=== PATIENT | female | born 1990 | race Caucasian/White ===

== ENCOUNTER 2016-04-29 22:50 | Emergency (ER) | payer OTHER ==
[~2016-04-29] VITALS: Ht 165.1 cm; Wt 68.2 kg
[2016-04-29 22:52] VITALS: BP 133/89; PULSE 75; RESP 20; O2SAT 98
--- NOTE | 2016-04-29 23:43 | ED.REPORT ---
HPI- Female Date of Service Apr 29, 2016 ED Provider: Philipp Hooper MD Pt is a 26 year old female presenting to the ED complaining of vaginal bleeding onset 8 days ago. Denies pain with intercourse, fever or chills. She states that she missed a day of her cyclic oral contraceptive last week, and then the next day, she took 2 pills. Since then, she has had persistent vaginal bleeding and stomach cramping. Her last menstrual cycle was February 18, 2016. She reports that she usually has 4 menstrual periods per year. Nursing Notes Stated Complaint: CRAMPING,HEAVY BLEEDING Chief Complaint: Female Abdominal Pain Nursing Notes Reviewed: Yes Allergies: Coded Allergies: No Known Allergies (Unverified , 04/29/16) Scheduled Medroxyprogesterone Acetate (Provera) 10 Mg Tablet 10 MG PO DAILY Scheduled PRN Naproxen (Naprosyn) 500 Mg Tablet 500 MG PO BID PRN PRN For Pain General Time Seen by MD: 23:42 Chief Complaint Vaginal bleeding... (Moderate) Hx Obtained From: Patient Arrived By: Walk-in Sudden in Onset?: No Onset Occurred: More than a week ago... (8 days ago) Symptom Duration: Since onset Quality: Cramping, Painful Severity: Current: Moderate Severity: Maximum: Moderate Recent Healthcare: No recent doctor visit, No recent hospitalization Similar Sx Previous: No Risk- Female Ectopic Risk Stratification RF Statements: Risk factors reviewed Past Medical History Past Medical History denies Past Surgical History denies Smoking History Unknown if Ever Smoker Ambulatory Status Independent Review of Systems GI: Reports: Abdominal pain Female: Reports: Pelvic pain, Vaginal bleeding - abnl Complete sys rev & neg: except as marked. Physical Exam Initial Vital Signs Vital Signs (First) Date Time Temp Pulse Resp B/P Pulse Ox O2 Delivery O2 Flow Rate FiO2 04/29/16 22:52 36.8 75 20 133/89 98 Room Air Initial VS: Reviewed General/Constitutional: Well-developed, Well-nourished Head / Eyes: Atraumatic, Normocephalic, PERRL ENT: Conjunctiva normal, No scleral icterus Neck: Supple Respiratory: No respiratory distress Abdomen / GI: Soft, Non-tender, No distention Extremities: No swelling Skin: Warm, Dry, No cyanosis Neurologic: Alert, Oriented, Nonfocal Psychiatric: Mood/affect normal, Behavior normal, Normal thought content Interpretation & Diagnostics Lab Results Interpretation Test 04/29/16 23:06 Hold Urine Received (Received) Re-Eval/Medical Decision Med Decision/Clinical Course 26-year-old on a low-dose estrogen regimen, using it in seasonal fashion to have for periods a year. She missed a dose of her medicine and made up the next day, but probably began to bleed, now has clots and heavier bleeding. This is fairly clearly a failure of estrogen support and a low dose regimen, after a substantial build up of endometrium. Low risk for endometritis in a monogamous female. No fever or other secondary signs and no prior discharge. No prior dyspareunia either. She is begun with full withdrawal and her progesterone course and then restart of her contraceptive with a fresh pack after completion of her endometrial sloughing. Naprosyn for cramps. Follow up with PCP. Re-Evaluation/Progress : Time of Eval: 23:53 Patient Status: Condition improved Re-Evaluation/Progress Note: Discussed plan for discharge. Pt understands and agrees with plan. All pt questions addressed. Counseled Regarding: Diagnosis, Lab results, Need for follow-up, When/why to return to ED Discharge & Departure Impression: Primary Impression: Menometrorrhagia Disposition: Home Discharge Condition All VS Reviewed: Yes Condition: Improved Patient Instructions: Dysfunctional Uterine Bleeding (ED) Additional Instructions: Take the progesterone for 5 days. Stop her current contraceptive packets, and restart with a fresh packet after he stopped having a period. Naprosyn or ibuprofen for cramps. Follow up with your primary care doctor in the next week. Return to the ER with any new or worsening symptoms such as a fever or other signs of infection. Referrals: NOPCP (PCP) Bonnie Attestation Portions of this note were transcribed by Dhara Medina. I, Dr. Hooper personally performed the history, physical exam and medical decision-making; I reviewed and confirmed the accuracy of the information in the transcribed note. Signed by: Bonnie Quevedo, 04/30/2016 and 0010. Philipp Hooper MD Apr 29, 2016 23:43 DHARA MEDINA Apr 29, 2016 23:55
[2016-04-30] MEDS ORDERED: MEDR10TA PO (00:03)
[2016-04-30] MEDS ORDERED: NAPR500T PO (00:03)
[2016-04-30] MEDS ORDERED: MedroxyPROGESTERone 5 mg Tablet PO ONE (00:05)
== END 2016-04-30 00:30 | disposition home or self-care (01) ==
LOC: SED 22:50
DX: N92.1 Excessive and frequent menstruation with irregular cycle (principal)